=== PATIENT | female | born 1985 | race Caucasian/White ===

== ENCOUNTER 2017-09-04 11:51 | Outpatient (CLI) | payer MEDICAID ==
[~2017-09-04] VITALS: Ht 177.8 cm; Wt 127.0 kg
[~2017-09-04 11:51] MED LIST: CYCL10TA9 PO; HYDR-3812 PO; PREN1TAB39 PO
[2017-09-04 11:58] VITALS: BP 125/81
[2017-09-04] MEDS ORDERED: BUTA1CAP41 PO (12:07)
[2017-09-04] MEDS ORDERED: SERT100T8 PO (12:07)
[2017-09-04] MEDS ORDERED: ZOLP10TA5 PO (12:07)
[2017-09-04] MEDS ORDERED: ETON1VAG VG (12:07)
[2017-09-04 12:29] LABS: BASOPHILS % (AUTO) 0 % (0-10); EOSINOPHILS # (AUTO) 0.1 10^3/uL (0.0-0.3); EOSINOPHILS % (AUTO) 2 % (0-10); LYMPHOCYTES # (AUTO) 1.8 X 10^3 (1.0-4.0); LYMPHOCYTES % (AUTO) 28 % (12-44); MEAN CORPUSCULAR HEMOGLOBIN 32 PG (25-34); MEAN CORPUSCULAR HGB CONC 34 G/DL (32-36); MEAN CORPUSCULAR VOLUME 93 FL (80-99); MONOCYTES # (AUTO) 0.5 X 10^3 (0.0-1.0); MONOCYTES % (AUTO) 7 % (0-12); NEUTROPHILS % (AUTO) 63 % (42-75); PLATELET COUNT 213 10^3/uL (130-400); RED BLOOD COUNT 4.67 10^6/uL (4.35-5.85); RED CELL DISTRIBUTION WIDTH 12.6 % (10.0-14.5); WHITE BLOOD COUNT 6.4 10^3/uL (4.3-11.0)
== END 2017-09-04 12:20 | disposition home or self-care (01) ==
LOC: PREOP 11:51
PROVIDERS: ATTEND Obstetrics & Gynecology
DX: Z01.812 Encounter for preprocedural laboratory examination (principal); R10.2 Pelvic and perineal pain; N93.8 Other specified abnormal uterine and vaginal bleeding; N92.0 Excessive and frequent menstruation with regular cycle
CPT/HCPCS: 36415; 85025; 86850; 86900; 86901; 87081

== ENCOUNTER 2017-09-10 10:35 | Day surgery (SDC) | payer MEDICAID ==
[~2017-09-10] VITALS: Ht 177.8 cm; Wt 127.0 kg
[2017-09-10] MEDS: KETOROLAC 30 MG/ML VIAL IVP SCH ×3 (05:45→23:07)
[~2017-09-10 10:35] MED LIST changes: +BUTA1CAP41 PO; +ETON1VAG VG; +SERT100T8 PO; +ZOLP10TA5 PO
[2017-09-10 11:05] VITALS: BP 129/96
[2017-09-10] MEDS: LACTATED RINGERS 1,000 ML IV PRN ×2 (11:05→13:45)
[2017-09-10] MEDS ORDERED: ceFAZolin 1 GM/NS 50 ML IVPB IV ONE ×2 (11:15)
[2017-09-10] MEDS ORDERED: BUP/EPI 0.5% 1:200,000 (MARCAINE) 10ML VIAL IJ ONE (11:17)
[2017-09-10] MEDS ORDERED: LACTATED RINGERS 1,000 ML IV ONE ×2 (11:28→14:47)
[2017-09-10] MEDS ORDERED: ROCURONIUM 50 MG/5 ML (ZEMURON) VIAL IV ONE (11:28)
[2017-09-10] MEDS ORDERED: ONDANSETRON 4 MG/2 ML (SDV) Z0FRAN ONE (11:28)
[2017-09-10] MEDS ORDERED: SEVOFLURANE (ULTANE) 15 ML INHAL SOLN ONE ×4 (11:28→14:47)
[2017-09-10] MEDS ORDERED: proPOfol 200 MG/20 ML (DIPRIVAN) VIAL IV ONE (11:28)
[2017-09-10] MEDS ORDERED: DEXAMETHASONE 10 MG/ML (DECADRON) 1 ML VIAL ONE (11:28)
[2017-09-10] MEDS ORDERED: LIDOCAINE PF 2% 5 ML (XYLOCAINE) VIAL ONE (11:28)
[2017-09-10] MEDS ORDERED: fentaNYL INJECTION 100 MCG/2 ML AMP ONE (11:28)
[2017-09-10] MEDS ORDERED: MIDAZOLAM 2 MG/2 ML (VERSED) VIAL ONE (11:29)
[2017-09-10] MEDS ORDERED: PROMETHAZINE INJ 25 MG/ML (PHENERGAN) AMP IVP PRN ×2 (12:00→18:15)
[2017-09-10] MEDS ORDERED: ONDANSETRON 4 MG/2 ML (SDV) Z0FRAN IVP PRN ×2 (12:00→13:15)
--- NOTE | 2017-09-10 12:58 | Progress Note-Pre Operative ---
Pre-Operative Progress Note H&P Reviewed The H&P was reviewed, patient examined and no changes noted. Date Seen by Provider: Sep 10, 2017 Time Seen by Provider: 12:58 Date H&P Reviewed: Sep 10, 2017 Time H&P Reviewed: 12:58 Pre-Operative Diagnosis: DUB/CPP/menorrhagia/uterine prolapse MABLE MORTON MD Sep 10, 2017 12:58 pm
--- NOTE | 2017-09-10 13:00 | Progress Note-Post Operative ---
Post-Operative Progess Note Surgeon (s)/Physician Relations Representative (s) Surgeon MABLE MORTON MD Physician Relations Representative: Pavithra Alonzo Pre-Operative Diagnosis DUB/CPP/menorrhagia/uterine prolapse Post-Operative Diagnosis same with pathology pending Procedure & Operative Findings Date of Procedure 09/10/17 Procedure Performed/Findings TL LSO RS Anesthesia Type Gen Estimated Blood Loss Estimated blood loss (mL): Minimal Specimens/Packing Specimens Removed uterus tubes left ovary Packing: none MABLE MORTON MD Sep 10, 2017 13:00
[2017-09-10] MEDS ORDERED: oxyCODONE/APAP 10/325MG (PERCOCET 10) TABLET PO PRN (13:15)
[2017-09-10] MEDS ORDERED: fentaNYL INJECTION 100 MCG/2 ML AMP IVP PRN (13:15)
[2017-09-10] MEDS: morphine INJ 10 MG/ML 1ML (SYR OR VIAL) IVP PRN ×2 (15:10→15:15)
[2017-09-10] MEDS: fentaNYL INJECTION 100 MCG/2 ML AMP IVP PRN ×2 (15:30→15:35)
[2017-09-10 16:00] VITALS: BP 145/86
[2017-09-10] MEDS: D5 LR IV SOLUTION 1,000 ML IV SCH (16:26)
[2017-09-10] MEDS ORDERED: MEPERIDINE (DEMEROL) INJ 50 MG/ML IM PRN (18:15)
[2017-09-10 19:55] VITALS: BP 139/87
[2017-09-10 23:00] VITALS: BP 136/79
[2017-09-11] MEDS: D5 LR IV SOLUTION 1,000 ML IV SCH (00:12)
[2017-09-11 03:00] VITALS: BP 142/86
[2017-09-11] MEDS: oxyCODONE/APAP 10/325MG (PERCOCET 10) TABLET PO PRN ×2 (03:05→08:54)
--- NOTE | 2017-09-11 04:20 | OPERATIVE REPORT ---
DATE OF SERVICE: 09/10/2017 PREOPERATIVE DIAGNOSES: Dysfunctional uterine bleeding, menorrhagia, chronic pelvic pain, and uterine prolapse. POSTOPERATIVE DIAGNOSES: Dysfunctional uterine bleeding, menorrhagia, chronic pelvic pain, and uterine prolapse. OPERATIVE PROCEDURE: Total laparoscopic hysterectomy with bilateral salpingectomies and with left oophorectomy. OPERATIVE DESCRIPTION: With the patient in the supine position under satisfactory general anesthesia, she was repositioned in dorsal lithotomy position in the [facility] and prepped and draped in the usual fashion for abdominal and vaginal surgery. The urinary bladder was drained via Rubio catheter to dependent drainage. A weighted speculum placed in the posterior fornix of the vagina. Cervix exposed and grasped anteriorly with single tooth tenaculum. Uterus sounded to 13 cm with the uterine sound. The cervix was then serially dilated with Russel dilators to accommodate a Jill II manipulator which was placed using a 6 x 8 cm uterine probe and a 30 mm colpotomy ring. Sutures of #1 Vicryl were placed at 3 and 9 o'clock position to affix the cervix to the manipulator. The patient brought in low dorsolithotomy position now. A 12 mm incision made 4 cm superior to the umbilicus, 8 mm incisions were made lateral to the umbilicus just above the level of the umbilicus. All three port sites were infiltrated with 0.25% Marcaine with epinephrine prior to incision. Veress needle was placed through the left upper quadrant incision. Correct placement confirmed with a water drop test. The abdomen was insufflated then with 2.4 liters of carbon dioxide. The Veress needle was removed, a 12 mm Optiview laparoscopic port placed through the umbilical incision and correct placement confirmed with the passage of the scope. The abdominal wall was then transilluminated and 8 mm ports were placed through the incisions right and left. The initial 12 mm port was removed and replaced over an instrument passed erica. This allowed for a longer port, which functioned satisfactory with the balance of the equipment. The patient was placed in Trendelenburg allowing the bowels to spill up out of the pelvis. At the console using a vessel sealer on the right and a bipolar fenestrated grasper on the left, the pelvis was first examined. There were endometriosis implants in the pelvis primarily on the fallopian tubes and on the left ovary. The right ovary appeared normal. The uterus was mottled and pale in appearance consistent with adenomyosis. Laparoscope was rotated. The appendix was well above the pelvis and was normal in appearance as well. Laparoscope was brought back to the pelvis. The procedure was initiated by raising the right fallopian tube and clamping, cauterizing, and dividing using the vessel sealer. The mesosalpinx on the right over to the utero-ovarian pedicle, which was then clamped, cauterized, and divided that was continued across the round ligament, across the broad ligament and down on to the cardinal ligament allowing for conservation of the right ovary with removal of the right fallopian tube eventually with the uterus. The same procedure was performed on the left using the vessel sealer across the mesovarium and across the IP ligament to allow for removal of the tube and ovary on the left. There were some adhesions of the sigmoid to the left pelvic brim at the IP ligament. These were lysed to allow the bowel to lift away from the IP ligament. The IP ligament was divided as was the mesovarium and the round ligament and the broad ligament and advanced to down on the cardinal ligament. The anterior lower uterine segment peritoneum was then divided removing the vessel sealer and using a monopolar shear. The bladder was carefully dissected down off of the lower uterine segment exposing the anterior vaginal wall on the colpotomy ring. A colpotomy incision was then made at 12 o'clock position and continued circumferentially encountered around the cervix. Once the entire colpotomy ring was exposed then the uterus with the tubes and left ovary still attached was extracted through the vagina. The vaginal cuff was closed with two sutures of V-Loc yvette sutures starting first from the right angle and continuing to the midpoint, and then from the left angle and across the midpoint including the uterine vessel pedicles from the cardinal ligaments and the closure as the suture was initiated. The final suture was used to bring the peritoneum down over the vaginal cuff as well. The pelvis was examined for hemostasis, which was complete. There was no abnormal pathology remaining. The right ovary was in situ and it was suspended well up on the side of the pelvis from the round ligament. The patient was brought out of Trendelenburg. The abdomen was evacuated of insufflating gas. All the ports were removed under direct vision. No bleeding was noted. The skin incisions were stapled. The fascia at the supraumbilical incision was closed with [id number] suture of 2-0 Vicryl. Sponge and needle counts were correct at the end of the procedure. Estimated blood loss for the procedure was minimal. The patient was uneventfully awakened from her general anesthesia and transferred to recovery room in stable condition. The speculum had been replaced in the vagina. The vaginal cuff found to be completely intact and hemostatic at the end of procedure. The patient now uneventfully awakened from general anesthesia and transferred to the recovery room in stable condition. Job ID: [id number] DocumentID: [id number] Dictated Date: 09/10/2017 14:38:01 Manager Professional Development Date: 09/11/2017 04:19:52 Dictated By: MABLE MORTON MD
[2017-09-11] MEDS: KETOROLAC 30 MG/ML VIAL IVP SCH (05:55)
--- NOTE | 2017-09-11 06:59 | Progress Note-Standard ---
Standard Progress Note Progress Notes/Assess & Plan Date Seen by Provider: Sep 11, 2017 Time Seen by Provider: 06:58 Progress/Assessment & Plan this patient is without complaint. She is ambulating, tolerating by mouth well , has good pain control. Both catheters just been removed and bladder trial is ongoing. Vital Signs Date Time Temp Pulse Resp B/P (MAP) Pulse Ox O2 Delivery O2 Flow Rate FiO2 09/10/17 23:00 98.6 82 18 136/79 97 Room Air 09/10/17 19:55 98.3 107 18 139/87 98 Room Air 09/10/17 18:23 100 Nasal Cannula 3.00 09/10/17 16:00 98.1 90 18 145/86 100 Nasal Cannula 3.00 09/10/17 11:05 98.9 80 16 129/96 98 Room Air Vital signs are stable. Patient afebrile. The abdomen is benign.Bowel sounds are present in all 4 quadrants. Extreme show clubbing cyanosis. There is no Homans sign. Assessment and plan postoperative day number 1 doing well. Plan is for discharge home with follow-up in clinic Final Diagnosis dysfunctional uterine bleeding/chronic pelvic pain MABLE MORTON MD Sep 11, 2017 6:59 am
[2017-09-11] MEDS ORDERED: IBUP-1780 PO (07:00)
[2017-09-11] MEDS ORDERED: OXYC-465 PO (07:00)
[2017-09-11] MEDS ORDERED: DOCU100C37 PO (07:00)
--- NOTE | 2017-09-11 07:01 | Discharge Instructions ---
Discharge Instructions Discharge Medications New, Converted or Re-Newed RX: RX on Chart Patient Instructions Patient Instructions: as directed Return to The Hospital For: as directed Activity & Diet Discharge Diet: No Restrictions Activity as Tolerated: No Orders-Post D/C & Referrals Follow Up Appt: return to clinic on Sunday, September 12, 2017 at 930 a.m. for staple removal Call to make follow up appt. for patient in 4 weeks. Activity: Rest for 24 hours, than as tolerated. Wound Care: May remove Band-Aid tomorrow. Replace as desired. Keep incisions clean and dry. Wash daily with soap and water. Please call in RX to patient pharmacy. Diet: As tolerated-Clear Liquids only if nauseated. Tomorrow, may shower or tub bathe as desired. No driving for 24 hours, no alcoholic beverages for 24 hours, and nothing per vagina (no tampons, douching, or intercourse) for 8 weeks. Patient to return to the clinic as soon as possible for: Temperature greater than 101F, Severe Pain, Foul discharge from incision or vagina, Excessive Bleeding (more than a period). MABLE MORTON MD Sep 11, 2017 7:01 am
[2017-09-11 08:20] VITALS: BP 160/89
[2017-09-11] MEDS ORDERED: DOCUSATE SODIUM 100 MG (COLACE) CAP PO SCH (09:00)
[2017-09-11] MEDS ORDERED: IBUPROFEN 800 MG (MOTRIN) TAB PO SCH (18:00)
== END 2017-09-11 11:00 | disposition home or self-care (01) ==
LOC: SDC 10:35 → WS 16:09 → SDC 09-11 11:00
PROVIDERS: ATTEND Obstetrics & Gynecology
DX: N83.202 Unspecified ovarian cyst, left side (principal); N92.0 Excessive and frequent menstruation with regular cycle; N81.4 Uterovaginal prolapse, unspecified; N80.0 Endometriosis of uterus; E66.01 Morbid (severe) obesity due to excess calories; Z68.41 Body mass index [BMI] 40.0-44.9, adult
CPT/HCPCS: 84703; 94664

== ENCOUNTER 2017-09-17 17:59 | Emergency (ER) | payer MEDICAID ==
[~2017-09-17] VITALS: Ht 177.8 cm; Wt 127.0 kg
[~2017-09-17 17:59] MED LIST changes: +DOCU100C37 PO; +IBUP-1780 PO; +OXYC-465 PO
--- NOTE | 2017-09-17 19:15 | ED Integumentary General ---
General Chief Complaint: Skin/Wound Problems Stated Complaint: POST HYSTERECTOMY/INCISION LEAKING Nursing Triage Note: AMB TO ROOM REPORTS HAD HYSTERECTOMY 1 WEEK AGO TODAY NOTICED DRAINAGE COMING FROM INCSION SITE. Source: patient Exam Limitations: no limitations History of Present Illness Time seen by provider: 19:12 Initial Comments To ER with c/o drainage from the supraumbilical incision from her hysterectomy 7 days ago that was done here. SHe also has some lower abdominal discomfort as well. No fevers or chills. Timing/Duration: just prior to arrival Severity: mild Associated Symptoms: No fever Allergies and Home Medications Allergies Coded Allergies: hydromorphone HCl (Unverified Allergy, Severe, CARDIAC ARREST. Pt able to tolerate Morphine, 09/10/17) Home Medications Butalb/Acetaminophen/Caffeine 1 Each Capsule, 1 EACH PO Q6H PRN for MIGRAINE, ( Reported) Cephalexin 500 Mg Capsule, 500 MG PO TID, #21 Prescribed by: CONSTANTINE QUIÑONEZ on 09/17/172011 Docusate Sodium 100 Mg Capsule, 100 MG PO BID, #60 Prescribed by: MABLE CRAFT on 09/11/17 0700 Ibuprofen 800 Mg Tablet, 800 MG PO Q6HR, #60 Prescribed by: MABLE CRAFT on 09/11/17 0700 Oxycodone HCl/Acetaminophen 1 Each Tablet, 1-2 TAB PO Q4H PRN for PAIN-MODERATE TO SEVERE, #60 Prescribed by: MABLE CRAFT on 09/11/17 0700 Sertraline HCl 100 Mg Tablet, 100 MG PO DAILY, (Reported) Zolpidem Tartrate 10 Mg Tablet, 10 MG PO HS, (Reported) Constitutional: see HPI, No chills, No fever EENTM: see HPI Respiratory: no symptoms reported Cardiovascular: no symptoms reported Genitourinary: no symptoms reported Musculoskeletal: no symptoms reported Skin: no symptoms reported Psychiatric/Neurological: No Symptoms Reported Endocrine: No Symptoms Reported Past Hrwncbh-Acgqws-Tfuvey Hx Patient Social History Recent Foreign Travel: No Contact w/Someone Who Travel: No Recent Infectious Disease Expo: No Recent Hopitalizations: No Immunizations Up To Date Date of Influenza Vaccine: Jan 06, 2012 Seasonal Allergies Seasonal Allergies: No Surgeries History of Surgeries: Yes (left knee scope, ) Surgeries: Gallbladder, Hysterectomy Respiratory History of Respiratory Disorde: No Cardiovascular History of Cardiac Disorders: No Neurological History of Neurological Disord: Yes Neurological Disorders: Headaches /Migraines Reproductive System Hx Reproductive Disorders: Yes Female Reproductive Disorders: Menstrual Problems, Polycystic Ovarian Dis BLIND INSTALLER History: Hysterectomy Gastrointestinal History of Gastrointestinal Di: Yes Gastrointestinal Disorders: Crohns Disease Musculoskeletal History of Musculoskeletal Dis: Yes Musculoskeletal Disorders: Arthritis Endocrine History of Endocrine Disorders: No Cancer History of Cancer: No Psychosocial History of Psychiatric Problem: No Integumentary History of Skin or Integumenta: Yes (brown rash on back and sides, there since 11/2016) Blood Transfusions History of Blood Disorders: No Physical Exam Vital Signs Vital Sign - Last 12Hours 09/17/17 18:35 Temp 98.9 Pulse 92 Resp 18 B/P (MAP) 132/90 Pulse Ox 98 O2 Delivery Room Air Capillary Refill : Less Than 3 Seconds General Appearance: WD/WN, no apparent distress HEENT: PERRL/EOMI, normal ENT inspection Neck: non-tender, full range of motion Respiratory: no respiratory distress, no accessory muscle use Gastrointestinal: non tender, soft Neurologic/Psychiatric: alert, normal mood/affect, oriented x 3 Skin: normal color, warm/dry Skin Problem Location: other (there is dehiscence of the supraumbilical incision (from laparoscope)) Progress/Results/Core Measures Results/Orders Lab Results Laboratory Tests Test 09/17/17 19:26 Range/Units White Blood Count 8.6 4.3-11.0 10^3/uL Red Blood Count 4.51 4.35-5.85 10^6/uL Hemoglobin 14.5 11.5-16.0 G/DL Hematocrit 42 35-52 % Mean Corpuscular Volume 94 80-99 FL Mean Corpuscular Hemoglobin 32 25-34 PG Mean Corpuscular Hemoglobin Concent 34 32-36 G/DL Red Cell Distribution Width 12.1 10.0-14.5 % Platelet Count 209 130-400 10^3/uL Mean Platelet Volume 9.8 7.4-10.4 FL Neutrophils (%) (Auto) 57 42-75 % Lymphocytes (%) (Auto) 30 12-44 % Monocytes (%) (Auto) 9 0-12 % Eosinophils (%) (Auto) 4 0-10 % Basophils (%) (Auto) 0 0-10 % Neutrophils # (Auto) 4.9 1.8-7.8 X 10^3 Lymphocytes # (Auto) 2.6 1.0-4.0 X 10^3 Monocytes # (Auto) 0.8 0.0-1.0 X 10^3 Eosinophils # (Auto) 0.4 H 0.0-0.3 10^3/uL Basophils # (Auto) 0.0 0.0-0.1 10^3/uL Sodium Level 140 135-145 MMOL/L Potassium Level 3.7 3.6-5.0 MMOL/L Chloride Level 102 98-107 MMOL/L Carbon Dioxide Level 26 21-32 MMOL/L Anion Gap 12 5-14 MMOL/L Blood Urea Nitrogen 14 7-18 MG/DL Creatinine 0.79 0.60-1.30 MG/DL Estimat Glomerular Filtration Rate > 60 BUN/Creatinine Ratio 18 Glucose Level 120 H 70-105 MG/DL Calcium Level 9.9 8.5-10.1 MG/DL My Orders Orders - CONSTANTINE QUIÑONEZ APRN Wound Culture (09/17/17 19:12) Cbc With Automated Diff (09/17/17 19:12) Basic Metabolic Panel (09/17/17 19:12) Ct Abdomen/Pelvis W (09/17/17 19:12) Iohexol Injection (Omnipaque 350 Mg/Ml 1 (09/17/17 19:30) Ns (Ivpb) (Sodium Chloride 0.9% Ivpb Bag (09/17/17 19:30) Ketorolac Injection (Toradol Injection) (09/17/17 19:30) Medications Given in ED Current Medications Medications Dose Ordered Sig/Kajal Route Start Time Stop Time Status Last Admin Dose Admin Iohexol 100 ml ONCE ONCE IV 09/17/17 19:30 09/17/17 19:31 DC 09/17/17 19:35 100 ML Ketorolac Tromethamine 30 mg ONCE ONCE IVP 09/17/17 19:30 09/17/17 19:31 DC 09/17/17 19:31 30 MG Sodium Chloride 100 ml ONCE ONCE IV 09/17/17 19:30 09/17/17 19:31 DC 09/17/17 19:35 80 ML Vital Signs/I&O Vital Sign - Last 12Hours 09/17/17 18:35 Temp 98.9 Pulse 92 Resp 18 B/P (MAP) 132/90 Pulse Ox 98 O2 Delivery Room Air Blood Pressure Mean: 104 Departure Communication (Admissions) Progress Notes NAME: NAOMI MARTINES [facility] REC#: [id number] PT STATUS: REG ER : 1985 PHYSICIAN: CONSTANTINE QUIÑONEZ APRN ADMIT DATE: 09/17/17/ER Draft Date of Exam:09/17/17 CT ABDOMEN/PELVIS W PROCEDURE: CT abdomen and pelvis with contrast. TECHNIQUE: Multiple contiguous axial images were obtained through the abdomen and pelvis after administration of intravenous contrast. INDICATION: Prior hysterectomy a week ago. Drainage coming from the incision site and abdominal pain. EXAMINATION: CT of the abdomen and pelvis with contrast 09/17/2017 FINDINGS: Along the midline of the abdomen likely umbilical region there is a focal fat-containing herniation. Adjacent fat stranding is noted which could be postoperative. In addition, there are multiple foci of air subcutaneously which are likely all postoperative in nature. No drainable amounts of fluid seen. Proximal to this region other foci of subcutaneous air noted. One of these appears to extend to the skin and is likely due to focal open wound, clinical correlation is recommended. No intraperitoneal or pelvic abscess or free air appreciated. Bowel loops normal in appearance. There are clips in the pelvis consistent with recent surgery. Clips in right upper quadrant also noted consistent with previous cholecystectomy. The appendix is not seen. No inflammation seen about the right lower quadrant. The liver, spleen, adrenal glands, pancreas unremarkable other than fatty infiltration throughout the liver. Kidneys demonstrate no evidence for acute abnormality. No acute osseous abnormality is appreciated. Lung bases demonstrate no acute disease. IMPRESSION: 1. Subcutaneous air along the midline of the abdomen as described above likely postoperative although somewhat more than expected for a week out from surgery. Clinical correlation for an open wound to the skin or infection with a gas-forming organism which is felt to be less likely but not excluded at this time recommended. No drainable fluid is seen. 2. Other incidental findings in the abdomen and pelvis as described above. Dictated on workstation # [id number] Dict: 09/17/17 194 Trans: 09/17/172001 ADINA [id number] Interpreted by: GLENDA CONKLIN MD Electronically signed by: Impression Impression: Primary Impression: Postoperative wound dehiscence Disposition: 01 HOME, SELF-CARE Condition: Stable Departure-Patient Inst. Decision time for Depature: 20:11 Referrals: GAGE AGUILLON DO (PCP/Family) Primary Care Physician Patient Instructions: NO INSTRUCTIONS GIVEN Add. Discharge Instructions: 1. Antibiotics as directed 2. Return to ER for any worsening symptoms 3. Call Dr Dodge tomorrow to discuss symptoms All discharge instructions reviewed with patient and/or family. Voiced understanding. Scripts Cephalexin (Keflex) 500 Mg Capsule 500 MG PO TID, #21 CAP Prov: CONSTANTINE QUIÑONEZ ANALYTICAL DATA MINER 09/17/17 Copy Copies To 1: MABLE DODGE MD, PETER J ANALYTICAL DATA MINER Sep 17, 2017 19:15
[2017-09-17] MEDS ORDERED: IOHEXOL 350 MG/ML 100 ML (OMNIPAQUE 350) VIAL IV ONE (19:30)
[2017-09-17] MEDS ORDERED: NS 100 ML (IVPB) BAG IV ONE (19:30)
[2017-09-17] MEDS ORDERED: KETOROLAC 30 MG/ML VIAL IVP ONE (19:30)
[2017-09-17 19:39] LABS: BASOPHILS % (AUTO) 0 % (0-10); EOSINOPHILS # (AUTO) 0.4 10^3/uL (0.0-0.3); EOSINOPHILS % (AUTO) 4 % (0-10); LYMPHOCYTES # (AUTO) 2.6 X 10^3 (1.0-4.0); LYMPHOCYTES % (AUTO) 30 % (12-44); MEAN CORPUSCULAR HEMOGLOBIN 32 PG (25-34); MEAN CORPUSCULAR HGB CONC 34 G/DL (32-36); MEAN CORPUSCULAR VOLUME 94 FL (80-99); MEAN PLATELET VOLUME 9.8 FL (7.4-10.4); MONOCYTES # (AUTO) 0.8 X 10^3 (0.0-1.0); MONOCYTES % (AUTO) 9 % (0-12); NEUTROPHILS # (AUTO) 4.9 X 10^3 (1.8-7.8); NEUTROPHILS % (AUTO) 57 % (42-75); PLATELET COUNT 209 10^3/uL (130-400); RED BLOOD COUNT 4.51 10^6/uL (4.35-5.85); RED CELL DISTRIBUTION WIDTH 12.1 % (10.0-14.5); WHITE BLOOD COUNT 8.6 10^3/uL (4.3-11.0)
[2017-09-17 20:02] LABS: ANION GAP 12 MMOL/L (5-14); BLOOD UREA NITROGEN 14 MG/DL (7-18); BUN/CREATININE RATIO 18; CALCIUM 9.9 MG/DL (8.5-10.1); CARBON DIOXIDE 26 MMOL/L (21-32); CHLORIDE 102 MMOL/L (98-107); CREATININE SERUM 0.79 MG/DL (0.60-1.30); GFR ESTIMATED > 60; GLUCOSE 120 MG/DL (70-105); POTASSIUM 3.7 MMOL/L (3.6-5.0); SODIUM 140 MMOL/L (135-145)
--- NOTE | 2017-09-17 20:03 | Diagnostic Imaging Report ---
PROCEDURE: CT abdomen and pelvis with contrast. TECHNIQUE: Multiple contiguous axial images were obtained through the abdomen and pelvis after administration of intravenous contrast. INDICATION: Prior hysterectomy a week ago. Drainage coming from the incision site and abdominal pain. EXAMINATION: CT of the abdomen and pelvis with contrast 09/17/2017 FINDINGS: Along the midline of the abdomen likely umbilical region there is a focal fat-containing herniation. Adjacent fat stranding is noted which could be postoperative. In addition, there are multiple foci of air subcutaneously which are likely all postoperative in nature. No drainable amounts of fluid seen. Proximal to this region other foci of subcutaneous air noted. One of these appears to extend to the skin and is likely due to focal open wound, clinical correlation is recommended. No intraperitoneal or pelvic abscess or free air appreciated. Bowel loops normal in appearance. There are clips in the pelvis consistent with recent surgery. Clips in right upper quadrant also noted consistent with previous cholecystectomy. The appendix is not seen. No inflammation seen about the right lower quadrant. The liver, spleen, adrenal glands, pancreas unremarkable other than fatty infiltration throughout the liver. Kidneys demonstrate no evidence for acute abnormality. No acute osseous abnormality is appreciated. Lung bases demonstrate no acute disease. IMPRESSION: 1. Subcutaneous air along the midline of the abdomen as described above likely postoperative although somewhat more than expected for a week out from surgery. Clinical correlation for an open wound to the skin or infection with a gas-forming organism which is felt to be less likely but not excluded at this time recommended. No drainable fluid is seen. 2. Other incidental findings in the abdomen and pelvis as described above. Dictated by: Dictated on workstation # [id number]
[2017-09-17] MEDS ORDERED: CEPH-507 PO (20:12)
[2017-09-17 20:28] VITALS: BP 132/90
== END 2017-09-17 20:28 | disposition home or self-care (01) ==
LOC: EDUNIT# 17:59 → ER 18:01
DX: T81.31XA Disruption of external operation (surgical) wound, not elsewhere classified, initial encounter (principal); G43.909 Migraine, unspecified, not intractable, without status migrainosus; Z87.19 Personal history of other diseases of the digestive system; Z87.42 Personal history of other diseases of the female genital tract
CPT/HCPCS: 36415; 74177; 80048; 85025; 87070; 87077; 87186; 87205; 96374